=== PATIENT | female | born 1950 | race Caucasian/White ===

== ENCOUNTER 2020-10-02 00:55 | Emergency (ER) | payer MEDICARE, SELFPAY ==
--- NOTE | ~2020-10-02 | CT_ITS ---
EXAMINATION: CT abdomen pelvis w con DATE: 10/02/2020 02:39 INDICATION: Generalized abdominal pain TECHNIQUE: Computed tomography (CT) of the abdomen and pelvis was performed with 100 mL Omnipaque-350 intravenous contrast. Automated exposure control and iterative reconstruction technique were employe d. The dose-length product was 357.62 mGy-cm. COMPARISON: None FINDINGS: Lung bases are clear. Visualized inferior heart is normal. No pericardial or pleural effusion. Mild f ocal hepatic steatosis at the ligamentum teres. Gallbladder, pancreas, bilateral adrenal glands and k idneys are normal. Splenic calcific lesions consistent with old granulomatous disease. A few scattere d colonic diverticula without adjacent inflammatory change to suggest diverticulitis. Small bowel is normal. The appendix is not visualized. No pericecal inflammatory change to suggest acute appendiciti s. Bladder, uterus and bilateral adnexa are unremarkable. No free intraperitoneal gas or fluid. No p athologically enlarged abdominal or pelvic lymphadenopathy.. There is calcified atherosclerosis of th e aorta and many of the other arteries. Mild scattered degenerative skeletal changes. IMPRESSION: 1. No acute intra-abdominal/pelvic process. Reviewed, dictated and finalized at location [facility].
[2020-10-02 01:08] VITALS: BP 165/94; PULSE 81; RESP 18; TEMP 36.7; O2SAT 98
--- NOTE | 2020-10-02 01:16 | ED.GENADULT ---
HPI - General Adult General Chief complaint: Urogenital-Female Stated complaint: UTI, recurrent Time Seen by Provider: 10/02/20 01:02 History of Present Illness HPI narrative: Patient 69-year-old female presents the emergency department with chief complaint of possible urinary tract infection. Patient reports that for some time she has had discomfort in her vaginal area has been seen by her primary care physician IDENTIFICATION OFFICER and urology. The patient reports she has an appointment scheduled for tomorrow and reports that she is out of her hydrocodone. The patient states that it mahmood in the vaginal area and reports that is not improved by anything nor is it worsened by anything. Related Data Allergies Allergy/AdvReac Type Severity Reaction Status Date / Time No Known Allergies Allergy Verified 10/02/20 01:13 Review of Systems Review of Systems: Narrative: A 10 system review of systems was completed on the patient and is negative except for what is stated in the HPI. Nursing and ancillary documentation was reviewed. Exam Narrative: Exam Narrative: GENERAL: Well-appearing, well-nourished, and in no acute distress. HEAD: Normocephalic, atraumatic. EYES: PERRLA and EOMI. ENT: Nares clear, no rhinorrhea or epistaxis. Mucous membranes moist. NECK: Supple. CHEST: Clear to auscultation. No respiratory distress. HEART: Regular rate and rhythm. No murmur heard. Normal peripheral pulses. ABDOMEN: Soft, nontender, nondistended, normal active bowel sounds. : There is beefy red areas in the perineum that appear to be candidal EXTREMITIES: Normal range of motion. No edema. SKIN: Warm, dry, no rash. NEURO: No focal deficits. Alert and oriented x3. PSYCH: Normal mood and affect. Course Vital Signs Vital signs: Vital Signs Temperature 36.7 C 10/02/20 01:08 Pulse Rate 81 10/02/20 01:08 Respiratory Rate 18 10/02/20 01:08 Blood Pressure 165/94 H 10/02/20 01:08 Pulse Oximetry 98 10/02/20 01:08 Temperature 36.7 C 10/02/20 01:08 Pulse Rate 73 10/02/20 04:02 Respiratory Rate 16 10/02/20 04:02 Blood Pressure 150/74 H 10/02/20 04:02 Pulse Oximetry 96 10/02/20 04:02 Medical Decision Making Vital Signs Vital Signs: Vital Signs Temperature 36.7 C 10/02/20 01:08 Pulse Rate 81 10/02/20 01:08 Respiratory Rate 18 10/02/20 01:08 Blood Pressure 165/94 H 10/02/20 01:08 Pulse Oximetry 98 10/02/20 01:08 Temperature 36.7 C 10/02/20 01:08 Pulse Rate 73 10/02/20 04:02 Respiratory Rate 16 10/02/20 04:02 Blood Pressure 150/74 H 10/02/20 04:02 Pulse Oximetry 96 10/02/20 04:02 Lab Data Result diagrams: 10/02/20 01:52 10/02/20 01:52 Labs: Lab Results 10/02/20 10/02/20 10/02/20 Range/Units 01:23 01:52 01:52 WBC 7.0 (4.5-10.0) K/mm3 RBC 4.10 L (4.2-5.4) M/mm3 Hgb 13.5 (12.0-15.0) g/dL Hct 38.8 (37.0-47.0) % MCV 94.6 (80-100) fl MCH 32.9 (26-34) pg MCHC 34.8 (32-36) g/dl RDW 12.1 (11.5-14.5) % Plt Count 265 (150-375) k/mm3 MPV 9.6 (7.4-10.4) fl Immature Gran % (Auto) 2.0 H (0-0.5) % Neut % (Auto) 45.0 L (45.5-73.1) % Lymph % (Auto) 33.6 (18.3-44.2) % Garvin % (Auto) 8.1 (2.6-8.5) % Eos % (Auto) 9.5 H (0-4.4) % Baso % (Auto) 1.8 H (0.2-1.2) % Lymph # (Auto) 2.36 (0.9-3.2) K/mm3 Garvin # (Auto) 0.6 (0.1-0.6) K/mm3 Eos # (Auto) 0.7 H (0-0.3) K/mm3 Baso # (Auto) 0.1 (0.0-0.1) K/mm3 Abs Immat Gran (auto) 0.14 H (0.00-0.031) K/mm3 Absolute Neuts (auto) 3.2 (1.3-6.7) K/mm3 Absolute Nucleated RBC 0.0 (0.0-0.012) K/mm3 Nucleated RBC % 0.0 (0.0-0.2) % Sodium 128 L (137-145) mmol/L Potassium 4.3 (3.4-5.0) mmol/L Chloride 91 L (98-107) mmol/L Carbon Dioxide 30 (22-30) mmol/L Anion Gap 7 L (8-16) mmol/L BUN 12 (7-17) mg/dL Creatinine 0.50 L (0.7-1.0) mg/dL Estim Creat Clear Calc 82 ml/min Estimat
[2020-10-02 01:36] LABS: Add Urine Microscopic? YES; Appearance Urine Clear (Clear); Bacteria Urine Trace /hpf; Bilirubin Urine Negative (Negative); Blood Urine 1+ (Negative); Color Urine Colorless (Yellow); Glucose Urine UA 3+ mg/dL (Negative); Ketones Urine Negative (Negative); Leukocyte Esterase Ur Negative LEU/UL (Negative); Nitrate Urine Negative (Negative); Protein Urine Negative (Negative); RBC Urine 0-2 /hpf (0-2); Specific Grav Ur 1.013 (1.001-1.035); Squamous Epithelial Cell Urine Rare /hpf (Few); Urobilinogen Urine Negative mg/dL (<2.0); WBC Urine 0-3 /hpf
[2020-10-02 02:05] LABS: Basophils Absolute Auto 0.1 K/mm3 (0.0-0.1); Basophils Percent Auto 1.8 % (0.2-1.2); Eosinophils Absolute Auto 0.7 K/mm3 (0-0.3); Eosinophils Percent Auto 9.5 % (0-4.4); Hematocrit 38.8 % (37.0-47.0); Hemoglobin 13.5 g/dL (12.0-15.0); Immature Granulocyte Absolute 0.14 K/mm3 (0.00-0.031); Lymphocytes Absolute Auto 2.36 K/mm3 (0.9-3.2); Lymphocytes Percent Auto 33.6 % (18.3-44.2); Mean Corpuscular HGB Conc 34.8 g/dl (32-36); Mean Corpuscular Hemoglobin 32.9 pg (26-34); Mean Corpuscular Volume 94.6 fl (80-100); Mean Platelet Volume 9.6 fl (7.4-10.4); Monocytes Absolute Auto 0.6 K/mm3 (0.1-0.6); Monocytes Percent Auto 8.1 % (2.6-8.5); Neutrophils Absolute Auto 3.2 K/mm3 (1.3-6.7); Platelet Count Result 265 k/mm3 (150-375); Red Cell Distribution Width 12.1 % (11.5-14.5)
[2020-10-02 02:21] LABS: Alanine Aminotransferase 26 U/L (4-35); Albumin Level 4.1 g/dL (3.5-5.1); Alkaline Phosphatase 187 U/L (38-126); Anion Gap 7 mmol/L (8-16); Aspartate Amino Transferase 37 U/L (14-36); Bilirubin,Total 0.5 mg/dL (0.2-1.3); Blood Urea Nitrogen 12 mg/dL (7-17); Calcium 10.1 mg/dL (8.4-10.2); Carbon Dioxide 30 mmol/L (22-30); Chloride 91 mmol/L (98-107); Estimated CRCL calculation 82 ml/min; Estimated Glomerular Filt Rate > 60; Glucose 357 mg/dL (65-110); Lipase 133 U/L (23-300); Potassium 4.3 mmol/L (3.4-5.0); Sodium 128 mmol/L (137-145)
[2020-10-02 02:42] VITALS: BP 154/59; PULSE 73; RESP 18; O2SAT 98
[2020-10-02] MEDS: SODIUM CHLORIDE 0.9% IV 1,000 ML 999 ML IV CONT (02:47)
[2020-10-02 03:58] LABS: Glucose Point of Care 271 mg/dl (65-105)
[2020-10-02 04:02] VITALS: BP 150/74; PULSE 73; RESP 16; O2SAT 96
[2020-10-02 05:10] VITALS: BP 163/74; PULSE 60; RESP 18; TEMP 36.7; O2SAT 99
== END 2020-10-02 05:11 | disposition home or self-care (01) ==
PROVIDERS: Emergency Provider Emergency Medicine; PCP Internal Medicine
DX: B37.2 Candidiasis of skin and nail (principal); E11.65 Type 2 diabetes mellitus with hyperglycemia
CPT/HCPCS: 36415; 74177; 80053; 81001; 82948; 83690; 85025; 96360; 99284; J7030; Q9967

== ENCOUNTER 2020-10-08 04:53 | Observation (INO) | payer MEDICARE, SELFPAY ==
[2020-10-08] VITALS (8 sets, daily range): BP systolic 101–157; BP diastolic 37–82; PULSE 66–77; RESP 14–18; TEMP 36.3–36.6; O2SAT 95–100; BMI 23.6
--- NOTE | ~2020-10-08 | CT_ITS ---
EXAMINATION: CT abdomen pelvis w con DATE: 10/08/2020 09:12 INDICATION: Left lower quadrant abdominal pain TECHNIQUE: Computed tomography (CT) of the abdomen and pelvis was performed with 100 cc Omnipaque 350 intravenous contrast. Automated exposure control and iterative reconstruction technique were employe d. Exam dose: 370.85 mGy-cm total exam DLP. COMPARISON: 10/02/2020 CT abdomen pelvis FINDINGS: The lung bases are clear of consolidation. Normal heart size. No pericardial or pleural effusion. Small sliding hiatal hernia. The liver, gallbladder, bile ducts, pancreas, pancreatic duct, spleen and adrenal glands as well as t he kidneys are unremarkable. No urinary tract calculus or hydroureteronephrosis. The urinary bladder is unremarkable. There is atherosclerotic calcification but no aneurysm of the abdominal aorta. No intraperitoneal or retroperitoneal or pelvic mass lesion or adenopathy or ascites. Minimal colonic diverticulosis; no CT evidence of diverticulitis. No bowel obstruction, bowel wall th ickening, pneumatosis or intraperitoneal free air. No suspicious skeletal findings. IMPRESSION: Minimal colonic diverticulosis; no CT evidence of diverticulitis Small sliding hiatal hernia Reviewed, dictated and finalized at [facility]. Reviewed, dictated and finalized at location [facility].
[2020-10-08 05:23] LABS: Add Urine Microscopic? YES; Appearance Urine Clear (Clear); Bilirubin Urine Negative (Negative); Blood Urine Negative (Negative); Color Urine Straw (Yellow); Glucose Urine UA 3+ mg/dL (Negative); Ketones Urine Negative (Negative); Leukocyte Esterase Ur Negative LEU/UL (Negative); Mucus Urine Rare /lpf; Nitrate Urine Negative (Negative); Protein Urine 1+ mg/dL (Negative); RBC Urine 0-2 /hpf (0-2); Specific Grav Ur 1.006 (1.001-1.035); Squamous Epithelial Cell Urine Rare /hpf (Few); Urobilinogen Urine Negative mg/dL (<2.0); WBC Urine 0-3 /hpf
--- NOTE | 2020-10-08 07:21 | ED.FEMALEGU ---
HPI - Female Genitourinary General Chief complaint: Urogenital-Female Stated complaint: UTI, yeast infection Time Seen by Provider: 10/08/20 07:04 History of Present Illness HPI Narrative: 69 yo female w/ h/o DM presents to the ED c/o UTI and yeast infection. She reports that she has had urinary frequency and dysuria for weeks. This is associated with lower abdominal pain. She was seen here a few days ago and started on antibiotics. She was supposed to have follow-up with her OB this morning, but she vomited a few times and decided to come here instead. Related Data Allergies Allergy/AdvReac Type Severity Reaction Status Date / Time No Known Allergies Allergy Verified 10/02/20 01:13 Review of Systems Constitutional: Constitutional: Reports fatigue ENT: Reports dizziness Cardiovascular: Cardiovascular: Denies chest pain Respiratory: Respiratory: Denies dyspnea Gastrointestinal: Gastrointestinal: Reports as per HPI Genitourinary: Genitourinary: Denies hematuria and Denies vaginal discharge Neurologic: Reports dizziness and Reports weakness PMFSH Past Medical History Medical History Anxiety Hyperlipidemia Hypertension Hypothyroidism Type 2 diabetes mellitus Social History Social History Social History: The patient lives in [place]. She designates her , Pedro Lieberman, as her surrogate decision maker and she wishes to be a full code. Exam Const: General: no acute distress, alert and ill appearing Orientation/consciousness: patient oriented x3 HENMT: Mouth: Yes dry mucous membranes Neck: Neck: normal visual inspection Resp: Effort & Inspection: normal respiratory effort Auscultation: clear to auscultation bilaterally, no rales, no rhonchi and no wheezes Cardio: Jugular venous distension: no JVD Rate: regular rate Rhythm: regular rhythm Heart sounds: no murmurs GI: Inspection: non-distended GI Palp: Yes Soft to palpation, Yes Tenderness to palpation present (GI) (LLQ), No Guarding due to palpation present (GI) and No Rebound tenderness present Skin: General skin exam: normal color Neuro: General: patient oriented x3 and moves all extremities Speech: normal speech Extrem: General: no edema Psych: Appearance: well kempt Affect: normal affect Course Vital Signs Vital signs: Vital Signs Temperature 36.6 C 10/08/20 04:58 Pulse Rate 77 10/08/20 04:58 Respiratory Rate 18 10/08/20 04:58 Blood Pressure 157/76 H 10/08/20 04:58 Pulse Oximetry 98 10/08/20 04:58 Temperature 36.3 C L 10/08/20 12:51 Pulse Rate 67 10/08/20 12:51 Respiratory Rate 14 10/08/20 12:51 Blood Pressure 107/37 L 10/08/20 12:51 Pulse Oximetry 96 10/08/20 12:51 MDM - Female Genitourinary MDM Narrative Medical decision making narrative: Lipase elevated. CT suspicious for pancreatitis. UA only shows glucose and ketones. Moderate hyponatremia, likely dehydration related. Medical Records Attestation: I reviewed the patient's medical records. Lab Data Attestation: I reviewed the patient's lab results. Result diagrams: 10/08/20 07:37 10/08/20 13:42 Labs: Lab Results 10/08/20 10/08/20 10/08/20 Range/Units 05:11 07:37 07:37 WBC 8.3 (4.5-10.0) K/mm3 RBC 4.09 L (4.2-5.4) M/mm3 Hgb 13.7 (12.0-15.0) g/dL Hct 37.4 (37.0-47.0) % MCV 91.4 (80-100) fl MCH 33.5 (26-34) pg MCHC 36.6 H (32-36) g/dl RDW 11.9 (11.5-14.5) % Plt Count 226 (150-375) k/mm3 MPV 9.6 (7.4-10.4) fl Immature Gran % (Auto) 1.1 H (0-0.5) % Neut % (Auto) 59.1 (45.5-73.1) % Lymph % (Auto) 21.5 (18.3-44.2) % Mccormick % (Auto) 8.7 H (2.6-8.5) % Eos % (Auto) 8.2 H (0-4.4) % Baso % (Auto) 1.4 H (0.2-1.2) % Lymph # (Auto) 1.79 (0.9-3.2) K/mm3 Mccormick # (Auto) 0.7 H (0.1-0.6) K/mm3 Eos # (Auto) 0.
[2020-10-08 07:44] LABS: Basophils Absolute Auto 0.1 K/mm3 (0.0-0.1); Basophils Percent Auto 1.4 % (0.2-1.2); Eosinophils Absolute Auto 0.7 K/mm3 (0-0.3); Eosinophils Percent Auto 8.2 % (0-4.4); Hematocrit 37.4 % (37.0-47.0); Hemoglobin 13.7 g/dL (12.0-15.0); Immature Granulocyte Absolute 0.09 K/mm3 (0.00-0.031); Immature Granulocyte Percent A 1.1 % (0-0.5); Lymphocytes Absolute Auto 1.79 K/mm3 (0.9-3.2); Lymphocytes Percent Auto 21.5 % (18.3-44.2); Mean Corpuscular HGB Conc 36.6 g/dl (32-36); Mean Corpuscular Hemoglobin 33.5 pg (26-34); Mean Corpuscular Volume 91.4 fl (80-100); Mean Platelet Volume 9.6 fl (7.4-10.4); Monocytes Absolute Auto 0.7 K/mm3 (0.1-0.6); Monocytes Percent Auto 8.7 % (2.6-8.5); Neutrophils Absolute Auto 4.9 K/mm3 (1.3-6.7); Neutrophils Percent Auto 59.1 % (45.5-73.1); Platelet Count Result 226 k/mm3 (150-375); Red Blood Count 4.09 M/mm3 (4.2-5.4); Red Cell Distribution Width 11.9 % (11.5-14.5); White Blood Count 8.3 K/mm3 (4.5-10.0)
[2020-10-08] MEDS: SODIUM CHLORIDE 0.9% IV 1,000 ML 999 ML IV CONT ×2 (07:47→10:20)
[2020-10-08] MEDS: ONDANSETRON INJ 4 MG/2 ML VIAL IV PUSH (07:47)
[2020-10-08 07:54] LABS: Lactic Acid Reflex 1.6 mmol/L (0.7-2.1)
[2020-10-08 08:07] LABS: Alanine Aminotransferase 23 U/L (4-35); Albumin Level 4.1 g/dL (3.5-5.1); Alkaline Phosphatase 124 U/L (38-126); Anion Gap 8 mmol/L (8-16); Aspartate Amino Transferase 35 U/L (14-36); Bilirubin,Total 0.6 mg/dL (0.2-1.3); Blood Urea Nitrogen 10 mg/dL (7-17); Carbon Dioxide 27 mmol/L (22-30); Chloride 84 mmol/L (98-107); Estimated Glomerular Filt Rate > 60; Glucose 275 mg/dL (65-110); Lipase 993 U/L (23-300); Sodium 119 mmol/L (137-145)
--- NOTE | 2020-10-08 12:05 | ADMGEN ---
This patient, Stephanie Lieberman, was admitted to Medical Room 250-01. Patient/family oriented to hospital policies and general routines including ID bracelet, bed and alarms, visiting hours, pain management, procedures, bathroom and other care routines, personal items, smoking policy, room service/diet, and visiting hours. Information on how to activate the Rapid Response Team has been discussed. Patient/Family are encouraged to report perceived risks to care and to ask questions if they do not understand what they are told or what they should do.
[2020-10-08] MEDS: LACTATED RINGERS 1,000 ML 150 ML IV CONT (12:53)
--- NOTE | 2020-10-08 13:30 | PM.IMHP ---
H&P: HPI History of Present Illness Date/Time: 10/08/20 13:30 Chief Complaint: Abdominal pain. Narrative: This is a 69-year-old female with history of hypertension, hyperlipidemia, type 2 diabetes mellitus, chronic pain syndrome on long-term opioid therapy, and hypothyroidism who presented to the emergency department earlier today via private vehicle from home with complaints of abdominal pain. It is a bit difficult to elicit a solid complaint from the patient but from what I can gather she has been having intermittent issues with abdominal and pelvic discomfort since she was treated for urinary tract infection x2 in June 2020. She describes vague pelvic discomfort however it sounds like this has been an going problem for several years, perhaps related to presumed prolapse as she has had a pessary for many years which unfortunately she has misplaced within the past 1.5 weeks. In about the same amount of time it seems as though she has had increasing urinary frequency and perhaps mild dysuria. She was seen in the emergency department shortly after midnight on 10/02/2020 with concerns for possible urinary tract infection. Urinalysis was unremarkable but on exam she appeared to have a yeast infection she was given a dose of fluconazole. Since that time she has continued to have vague abdominal discomfort however she was able to localize it more so in the mid right quadrant though on exam she was quite tender to palpation in the left upper quadrant. A CT of the abdomen and pelvis performed today did not show any acute findings however her lipase level was elevated to just shy of 1000 thus this may be the cause of her pain although it presents a bit unusually. She was also found to have a sodium level of 119 when it was 128 just 1 week ago. It sounds as though perhaps she has been drinking more fluids than eating and she admit that she has been drinking more alcohol in the last 3 to 4 weeks to try to help with the pain, typically drinking 2 to 3 beers a day. She has never been told that her sodium levels were low prior to today. She is ham some nausea but no vomiting. No confusion. No prior history of pancreatitis. No epigastric pain or significant indigestion symptoms. Review of Systems Review of Systems: Narrative: 12 systems were reviewed with pertinent positives and negatives as per HPI. She denies fever, chills, and sweats. No sinus congestion, rhinorrhea, otalgia, or odynophagia. No vertigo or dizziness. She denies syncope or near syncope. No blurry vision, polydipsia, or polyuria. She admits that she does not check her glucose at home very often. Denies diarrhea and constipation. She denies chest pain shortness of breath. Normal bowel movement yesterday. Except as documented, all other systems were reviewed and are negative. [facility] Past Medical History Medical History (Updated 10/08/20 @ 22:51 by Anneliese Irwin PA-C) Anxiety Cervical dystonia Treated with Botox injections. Chronic back pain Chronic, continuous use of opioids Secondary to cervical dystonia, radiculopathy, spinal arthritis, and hammertoes. Hyperlipidemia Hypertension Hypothyroidism Type 2 diabetes mellitus Surgical History Surgical History (Updated 10/08/20 @ 22:49 by Anneliese Irwin PA-C) History of appendectomy Family History Family History Sibling Diabetes mellitus Mother Diabetes mellitus Alzheimer disease Father Lung cancer Social History Social History (Updated 10/08/20 @ 22:50 by Anneliese Irwin PA-C) Social History: Surrogate decision maker: Pedro Lieberman, . Code status: Full code. Smoking packs per day: 0.5 Smoking cigarettes per day: 10.0 Years smoked: 50 Smoking pack-years: 25.00 Smoking status: Light tobacco smoker Tobacco type: cigarettes Second hand tobacco smoke exposure: Yes Alcohol intake: current Drinks per week: 21 Substance use: never Additi
[2020-10-08 13:59] LABS: Amylase 63 U/L (30-110); Anion Gap 10 mmol/L (8-16); Blood Urea Nitrogen 8 mg/dL (7-17); Calcium 8.6 mg/dL (8.4-10.2); Carbon Dioxide 23 mmol/L (22-30); Chloride 91 mmol/L (98-107); Estimated CRCL calculation 101 ml/min; Estimated Glomerular Filt Rate > 60; Glucose 235 mg/dL (65-110); Magnesium 1.3 mg/dL (1.6-2.3); Sodium 124 mmol/L (137-145)
[2020-10-08 15:57] LABS: Free T4 Free Thyroxine Reflex 0.74 ng/dL (0.78-2.19)
[2020-10-08 17:25] LABS: Glucose Point of Care 221 mg/dl (65-105)
[2020-10-08 18:11] LABS: Sodium 126 mmol/L (137-145)
[2020-10-08] MEDS: MAGNESIUM SULF 2 GM/WATER 50ML 2 GM/50 ML BAG IVPB (18:57)
[2020-10-08 20:52] LABS: Glucose Point of Care 217 mg/dl (65-105)
[2020-10-08 21:51] LABS: Sodium 124 mmol/L (137-145)
[2020-10-08] MEDS: HYDROcodone/acetaminophen (*CRX) 5-325 MG TABLET 1 TAB PO (22:46)
[2020-10-08] MEDS: clonazePAM (*CRX) 0.5 MG TABLET PO (22:47)
[2020-10-09 01:15] LABS: Sodium 124 mmol/L (137-145)
[2020-10-09 06:00] VITALS: BP 156/62; PULSE 65; RESP 16; TEMP 36.4; O2SAT 93
[2020-10-09 06:03] LABS: Alanine Aminotransferase 19 U/L (4-35); Albumin Level 3.4 g/dL (3.5-5.1); Alkaline Phosphatase 86 U/L (38-126); Aspartate Amino Transferase 33 U/L (14-36); Bilirubin,Total 0.5 mg/dL (0.2-1.3); Magnesium 1.7 mg/dL (1.6-2.3); Sodium 127 mmol/L (137-145); Triglycerides 320 mg/dL (<150)
[2020-10-09 08:06] LABS: Glucose Point of Care 180 mg/dl (65-105)
[2020-10-09] MEDS: SERTRALINE HCL 50 MG TABLET 150 MG PO (08:17)
[2020-10-09 08:18] VITALS: PULSE 65
[2020-10-09] MEDS: ROSUVASTATIN 10 MG TABLET PO (08:18)
[2020-10-09] MEDS: clonazePAM (*CRX) 0.5 MG TABLET PO (08:18)
[2020-10-09] MEDS: GLIMEPIRIDE 2 MG TABLET PO (08:18)
[2020-10-09] MEDS: nadoloL 20 MG TABLET 40 MG PO (08:18)
[2020-10-09 09:10] LABS: Hematocrit 38.1 % (37.0-47.0); Hemoglobin 13.4 g/dL (12.0-15.0); Mean Corpuscular HGB Conc 35.2 g/dl (32-36); Mean Corpuscular Hemoglobin 32.8 pg (26-34); Mean Corpuscular Volume 93.4 fl (80-100); Platelet Count Result 242 k/mm3 (150-375); Red Blood Count 4.08 M/mm3 (4.2-5.4); Red Cell Distribution Width 12.3 % (11.5-14.5); White Blood Count 5.1 K/mm3 (4.5-10.0)
--- NOTE | 2020-10-09 09:21 | P.PNIM_ITS ---
Progress Note: A&P Assessment and Plan (1) Hyponatremia: Code(s): E87.1 - Hypo-osmolality and hyponatremia Status: Acute Assessment and Plan: * suspect due to increased alcohol and free water intake * improving after IV saline and elimination of alcohol intake * 10/09 add sodium chloride tablets and restrict free water * 10/09 sodium return to 128 which was her baseline on 10/02 (2) Pelvic pain: Code(s): R10.2 - Pelvic and perineal pain Status: Acute Assessment and Plan: * patient has chronic pain in the pelvic region * she recently misplaced her pessary and this may account for the increase and pain that brought her to the emergency department * with bed rest overnight her pain is improved to baseline or better * she has no evidence of acute infection or anatomic abnormality by urinalysis and CT scanning * she was advised to follow-up with her chief mate (3) Abnormal serum lipase level: Code(s): R74.8 - Abnormal levels of other serum enzymes Status: Acute Assessment and Plan: * elevated lipase without other signs or symptoms of acute pancreatitis including negative imaging * lipase normalized 10/09 * possibly due to recent alcohol intake as AST was somewhat elevated as well * advanced diet and monitor for signs or symptoms (4) Hypertension: Qualifiers: Hypertension type: unspecified Qualified Code(s): I10 - Essential (primary) hypertension Code(s): I10 - Essential (primary) hypertension Status: Acute Assessment and Plan: * continue home regimen * monitor (5) Type 2 diabetes mellitus: Qualifiers: Diabetes mellitus manager terminal insulin use: without manager terminal use Diabetes mellitus complication status: with hyperglycemia Qualified Code(s): E11.65 - Type 2 diabetes mellitus with hyperglycemia Code(s): E11.9 - Type 2 diabetes mellitus without complications Status: Acute Assessment and Plan: * continue home regimen * monitor (6) Hypothyroidism: Qualifiers: Hypothyroidism type: acquired Qualified Code(s): E03.9 - Hypothyroidism, unspecified Code(s): E03.9 - Hypothyroidism, unspecified Status: Acute Assessment and Plan: * continue home regimen (7) Anxiety: Code(s): F41.9 - Anxiety disorder, unspecified Status: Acute Assessment and Plan: * continue home regimen (8) Hyperlipidemia: Qualifiers: Hyperlipidemia type: unspecified Qualified Code(s): E78.5 - Hyperlipidemia, unspecified Code(s): E78.5 - Hyperlipidemia, unspecified Status: Acute Assessment and Plan: * continue home regimen (9) Narcotic dependence: Code(s): F11.20 - Opioid dependence, uncomplicated Status: Acute Assessment and Plan: chronic hydrocodone use (10) Benzodiazepine dependence: Code(s): F13.20 - Sedative, hypnotic or anxiolytic dependence, uncomplicated Status: Acute Assessment and Plan: chronic clonazepam use Subjective Date/time seen: 10/09/20 09:21 Interval history: Admitted October 08 with pelvic discomfort and hyponatremia. Admitted recent increase in beer intake and fluid intake. No recent medication changes. 10/09: Pelvic discomfort much better today. No nausea vomiting. Hungry. Denied GI or changes other than frequent urination which is chronic. Pelvic discomfort is chronic was a bit worse yesterday. But improved today. Denied chest pain or shortness of breath, nausea vomiting, abn
--- NOTE | 2020-10-09 09:21 | PM.IMPN ---
Progress Note: A&P Assessment and Plan (1) Hyponatremia: Code(s): E87.1 - Hypo-osmolality and hyponatremia Status: Acute Assessment and Plan: suspect due to increased alcohol and free water intake improving after IV saline and elimination of alcohol intake 10/09 add sodium chloride tablets and restrict free water 10/09 sodium return to 128 which was her baseline on 10/02 (2) Pelvic pain: Code(s): R10.2 - Pelvic and perineal pain Status: Acute Assessment and Plan: patient has chronic pain in the pelvic region she recently misplaced her pessary and this may account for the increase and pain that brought her to the emergency department with bed rest overnight her pain is improved to baseline or better she has no evidence of acute infection or anatomic abnormality by urinalysis and CT scanning she was advised to follow-up with her mail service coordinator (3) Abnormal serum lipase level: Code(s): R74.8 - Abnormal levels of other serum enzymes Status: Acute Assessment and Plan: elevated lipase without other signs or symptoms of acute pancreatitis including negative imaging lipase normalized 10/09 possibly due to recent alcohol intake as AST was somewhat elevated as well advanced diet and monitor for signs or symptoms (4) Hypertension: Qualifiers: Hypertension type: unspecified Qualified Code(s): I10 - Essential (primary) hypertension Code(s): I10 - Essential (primary) hypertension Status: Acute Assessment and Plan: continue home regimen monitor (5) Type 2 diabetes mellitus: Qualifiers: Diabetes mellitus termite control representative insulin use: without termite control representative use Diabetes mellitus complication status: with hyperglycemia Qualified Code(s): E11.65 - Type 2 diabetes mellitus with hyperglycemia Code(s): E11.9 - Type 2 diabetes mellitus without complications Status: Acute Assessment and Plan: continue home regimen monitor (6) Hypothyroidism: Qualifiers: Hypothyroidism type: acquired Qualified Code(s): E03.9 - Hypothyroidism, unspecified Code(s): E03.9 - Hypothyroidism, unspecified Status: Acute Assessment and Plan: continue home regimen (7) Anxiety: Code(s): F41.9 - Anxiety disorder, unspecified Status: Acute Assessment and Plan: continue home regimen (8) Hyperlipidemia: Qualifiers: Hyperlipidemia type: unspecified Qualified Code(s): E78.5 - Hyperlipidemia, unspecified Code(s): E78.5 - Hyperlipidemia, unspecified Status: Acute Assessment and Plan: continue home regimen (9) Narcotic dependence: Code(s): F11.20 - Opioid dependence, uncomplicated Status: Acute Assessment and Plan: chronic hydrocodone use (10) Benzodiazepine dependence: Code(s): F13.20 - Sedative, hypnotic or anxiolytic dependence, uncomplicated Status: Acute Assessment and Plan: chronic clonazepam use Subjective Date/time seen: 10/09/20 09:21 Interval history: Admitted October 08 with pelvic discomfort and hyponatremia. Admitted recent increase in beer intake and fluid intake. No recent medication changes. 10/09: Pelvic discomfort much better today. No nausea vomiting. Hungry. Denied GI or changes other than frequent urination which is chronic. Pelvic discomfort is chronic was a bit worse yesterday. But improved today. Denied chest pain or shortness of breath, nausea vomiting, abnormal bleeding, diarrhea or dysuria. Review of Systems Review of Systems: All systems reviewed & are unremarkable except as noted in HPI and below Exam Narrative: Exam Narrative: General: Well-developed female supine in bed in no distress. HEENT: Normocephalic, atraumatic. PERRL, Sclerae anicteric. mucous membranes pink and moist Lips are chapped. Neck: Supple. no mass or thyromegaly Respiratory: Lungs
[2020-10-09 09:27] LABS: Alanine Aminotransferase 22 U/L (4-35); Albumin Level 3.6 g/dL (3.5-5.1); Alkaline Phosphatase 82 U/L (38-126); Anion Gap 5 mmol/L (8-16); Aspartate Amino Transferase 37 U/L (14-36); Bilirubin,Total 0.5 mg/dL (0.2-1.3); Blood Urea Nitrogen 5 mg/dL (7-17); Calcium 8.5 mg/dL (8.4-10.2); Carbon Dioxide 27 mmol/L (22-30); Chloride 96 mmol/L (98-107); Estimated CRCL calculation 83 ml/min; Estimated Glomerular Filt Rate > 60; Glucose 170 mg/dL (65-110); Lipase 51 U/L (23-300); Potassium 3.7 mmol/L (3.4-5.0); Sodium 128 mmol/L (137-145)
[2020-10-09 09:37] LABS: Sodium 125 mmol/L (137-145)
[2020-10-09] MEDS: SODIUM CHLORIDE 500 MG TABLET PO (10:26)
--- NOTE | 2020-10-09 11:15 | P.DS_ITS ---
DS: Admitting Diagnosis Admitting Diagnosis Pelvic pain and elevated amylase DS: Discharge Diagnosis Discharge Diagnosis (1) Hyponatremia: Code(s): E87.1 - Hypo-osmolality and hyponatremia Status: Acute Assessment and Plan: * suspect due to increased alcohol and free water intake * improving after IV saline and elimination of alcohol intake * 10/09 add sodium chloride tablets and restrict free water * 10/09 sodium return to 128 which was her baseline on 10/02 (2) Pelvic pain: Code(s): R10.2 - Pelvic and perineal pain Status: Acute Assessment and Plan: * patient has chronic pain in the pelvic region * she recently misplaced her pessary and this may account for the increase and pain that brought her to the emergency department * with bed rest overnight her pain is improved to baseline or better * she has no evidence of acute infection or anatomic abnormality by urinalysis and CT scanning * 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 (3) Abnormal serum lipase level: Code(s): R74.8 - Abnormal levels of other serum enzymes Status: Acute Assessment and Plan: * elevated lipase without other signs or symptoms of acute pancreatitis including negative imaging * lipase normalized 10/09 * possibly due to recent alcohol intake as AST was somewhat elevated as well * advanced diet and monitor for signs or symptoms (4) Hypertension: Qualifiers: Hypertension type: unspecified Qualified Code(s): I10 - Essential (primary) hypertension Code(s): I10 - Essential (primary) hypertension Status: Acute Assessment and Plan: * continue home regimen * monitor (5) Type 2 diabetes mellitus: Qualifiers: Diabetes mellitus complication status: with hyperglycemia Diabetes mellitus ad terminal makeup operator insulin use: without ad terminal makeup operator use Qualified Code(s): E11.65 - Type 2 diabetes mellitus with hyperglycemia Code(s): E11.9 - Type 2 diabetes mellitus without complications Status: Acute Assessment and Plan: * continue home regimen * monitor (6) Hypothyroidism: Qualifiers: Hypothyroidism type: acquired Qualified Code(s): E03.9 - Hypothyroidism, unspecified Code(s): E03.9 - Hypothyroidism, unspecified Status: Acute Assessment and Plan: * continue home regimen * elevated tsh and slightly low FT4 suggest noncompliance * Take as directed and f/u with PCP * Likely contributing to her hyponatremia (7) Anxiety: Code(s): F41.9 - Anxiety disorder, unspecified Status: Acute Assessment and Plan: * continue home regimen (8) Hyperlipidemia: Qualifiers: Hyperlipidemia type: unspecified Qualified Code(s): E78.5 - Hyperlipidemia, unspecified Code(s): E78.5 - Hyperlipidemia, unspecified Status: Acute Assessment and Plan: * continue home regimen (9) Narcotic dependence: Code(s): F11.20 - Opioid dependence, uncomplicated Status: Acute Assessment and Plan: chronic hydrocodone use (10) Benzodiazepine dependence: Code(s): 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 Had lost her pessary a few days before. Note she had been drinking more fluid and m
--- NOTE | 2020-10-09 11:15 | PM.DS ---
DS: Admitting Diagnosis Admitting Diagnosis Pelvic pain and elevated amylase DS: Discharge Diagnosis Discharge Diagnosis (1) Hyponatremia: Code(s): E87.1 - Hypo-osmolality and hyponatremia Status: Acute Assessment and Plan: suspect due to increased alcohol and free water intake improving after IV saline and elimination of alcohol intake 10/09 add sodium chloride tablets and restrict free water 10/09 sodium return to 128 which was her baseline on 10/02 (2) Pelvic pain: Code(s): R10.2 - Pelvic and perineal pain Status: Acute Assessment and Plan: patient has chronic pain in the pelvic region she recently misplaced her pessary and this may account for the increase and pain that brought her to the emergency department with bed rest overnight her pain is improved to baseline or better she has no evidence of acute infection or anatomic abnormality by urinalysis and CT scanning 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 (3) Abnormal serum lipase level: Code(s): R74.8 - Abnormal levels of other serum enzymes Status: Acute Assessment and Plan: elevated lipase without other signs or symptoms of acute pancreatitis including negative imaging lipase normalized 10/09 possibly due to recent alcohol intake as AST was somewhat elevated as well advanced diet and monitor for signs or symptoms (4) Hypertension: Qualifiers: Hypertension type: unspecified Qualified Code(s): I10 - Essential (primary) hypertension Code(s): I10 - Essential (primary) hypertension Status: Acute Assessment and Plan: continue home regimen monitor (5) Type 2 diabetes mellitus: Qualifiers: Diabetes mellitus complication status: with hyperglycemia Diabetes mellitus chcf insulin use: without termite control technician use Qualified Code(s): E11.65 - Type 2 diabetes mellitus with hyperglycemia Code(s): E11.9 - Type 2 diabetes mellitus without complications Status: Acute Assessment and Plan: continue home regimen monitor (6) Hypothyroidism: Qualifiers: Hypothyroidism type: acquired Qualified Code(s): E03.9 - Hypothyroidism, unspecified Code(s): E03.9 - Hypothyroidism, unspecified Status: Acute Assessment and Plan: continue home regimen elevated tsh and slightly low FT4 suggest noncompliance Take as directed and f/u with PCP Likely contributing to her hyponatremia (7) Anxiety: Code(s): F41.9 - Anxiety disorder, unspecified Status: Acute Assessment and Plan: continue home regimen (8) Hyperlipidemia: Qualifiers: Hyperlipidemia type: unspecified Qualified Code(s): E78.5 - Hyperlipidemia, unspecified Code(s): E78.5 - Hyperlipidemia, unspecified Status: Acute Assessment and Plan: continue home regimen (9) Narcotic dependence: Code(s): F11.20 - Opioid dependence, uncomplicated Status: Acute Assessment and Plan: chronic hydrocodone use (10) Benzodiazepine dependence: Code(s): 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 Had lost her pessary a few days before. Note she had been drinking more fluid and more beer than usual. Was found to be hyponatremic. Fluid restriction and salt tablets added. Sodium improved to 128 and 125 from baseline of 119. She was found to be hypothyroid with TSH 22.9 and free T4 0.74. her baseline Synthroid dose was 150 mcg daily. Given that her lab values suggested noncompliance correct dosing was emphasized and she was encouraged to follow-up with her primary physician. Overnight her pain improv
[2020-10-09 12:45] LABS: Glucose Point of Care 257 mg/dl (65-105)
[2020-10-09] MEDS: INSULIN ASPART (*BKC) 100 UNITS/ML SUB-Q (12:51)
[2020-10-09 13:31] LABS: Sodium 127 mmol/L (137-145)
[2020-10-09 14:05] VITALS: BP 122/60; PULSE 63; RESP 16; TEMP 36.4; O2SAT 96
== END 2020-10-09 15:10 | disposition home or self-care (01) ==
LOC: ANHED 10:32 → ANH2MED 14:05
PROVIDERS: General Practice; Physician Assistant; Admitting Provider Family Medicine; Emergency Provider Emergency Medicine; PCP Internal Medicine; Visit Provider Internal Medicine
DX: E87.1 Hypo-osmolality and hyponatremia (principal); R10.2 Pelvic and perineal pain; R74.8 Abnormal levels of other serum enzymes; I10 Essential (primary) hypertension; E11.65 Type 2 diabetes mellitus with hyperglycemia; E03.9 Hypothyroidism, unspecified; F41.9 Anxiety disorder, unspecified; E78.5 Hyperlipidemia, unspecified; F11.20 Opioid dependence, uncomplicated; F13.20 Sedative, hypnotic or anxiolytic dependence, uncomplicated
CPT/HCPCS: 36415; 74177; 80048; 80053; 80076; 81001; 82150; 82948; 83605; 83690; 83735; 83930; 84295; 84439; 84443; 84478; 85025; 85027; 96361; 96365; 96375; 99285; A9270; G0378; J1815; J2405; J3475; J7030; J7120; Q9967